=== PATIENT | female | born 1960 | race Caucasian/White ===

== ENCOUNTER 2017-04-06 22:53 | Emergency (ER) | payer OTHER ==
[2017-04-06 23:01] VITALS: BMI 23.3
[2017-04-06 23:07] VITALS: BP 111/68; PULSE 58; RESP 16; TEMP 97.9
--- NOTE | 2017-04-06 23:36 | ED PDOC ---
Arrival/HPI - General Chief Complaint: Back Pain Time Seen by Provider: 04/06/17 23:17 Historian: Patient - History of Present Illness Narrative History of Present Illness (Text): 04/06/17 23:31 57 year old female presents to the emergency department complaining of back pain radiating to right leg already diagnosed as sciatic pain that began one week ago. She states the pain occurs with any form of movement. 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 Patient has been taking tylenol, aspirin, muscle relaxers, but with no relief. She states that 600mg Advil has been effective but is concerned about its effects on her stomach. She has also taken tramadol but states it is too sedating and made her pass out so she stopped taking it. Patient has been seeing a physical therapist today and will be seeing one tomorrow. She also reports her last medication taken was Advil 100mg 4 hours ago. Patient denies any fever, chills, chest pain, shortness of breath, nausea, vomiting, diarrhea, urinary incontinence, urinary symptoms, back pain, neck pain, headache, dizziness, or any other complaints. PMD: Dr. Vidal Time/Duration: 1 week Symptom Onset: Gradual Symptom Course: Unchanged Activities at Onset: Light Context: Home Past Medical History - Provider Review Nursing Documentation Reviewed: Yes - Past History Past History: No Previous - Infectious Disease Hx of Infectious Diseases: None - Tetanus Immunization Tetanus Immunization: Unknown - Reproductive Menopause: Yes - Past Medical History Past Medical History: No Previous - Cardiac Other/Comment: palpitation - Psychiatric Hx Depression: No Hx Emotional Abuse: No Hx Physical Abuse: No Hx Substance Use: No - Past Surgical History Past Surgical History: No Previous - Surgical History Hx Section: Yes (x1) - Anesthesia Hx Anesthesia Reactions: No Hx Malignant Hyperthermia: No - Suicidal Assessment Feels Threatened In Home Enviroment: No Family/Social History - Physician Review Nursing Documentation Reviewed: Yes Family/Social History: No Known Family HX Smoking Status: Never Smoked Hx Alcohol Use: No Hx Substance Use: No Hx Substance Use Treatment: No Allergies/Home Meds Allergies/Adverse Reactions: Allergies Penicillins Allergy (Verified 04/06/17 23:05) RASH tramadol Adverse Reaction (Verified 04/06/17 23:04) DIZZINESS Home Medications: Home Meds Medication Instructions Recorded Confirmed Metoprolol Tartrate [Lopressor] 25 mg PO DAILY 04/06/17 04/06/17 Review of Systems - Physician Review All systems were reviewed & negative as marked: Yes - Review of Systems Constitutional: absent: Fevers, Other (Chills) Respiratory: absent: SOB Cardiovascular: absent: Chest Pain Gastrointestinal: absent: Nausea, Vomiting, Other (Urinary incontinence) Genitourinary Female: absent: Dysuria, Frequency, Hematuria Musculoskeletal: Other (Right leg pain). absent: Neck Pain Neurological: absent: Headache, Dizziness Physical Exam - Physical Exam Narrative Physical Exam (Text): Constitutional: No some distress secondary to pain. Head: Normocephalic. Atraumatic. Eyes: PERRL. ENT: Moist mucous membranes. Neck: Supple. Cardiovascular: Regular rate. Chest: No tenderness. Respiratory: Clear to auscultation bilaterally. GI: Soft. Nontender. Nondistended. Back: No CVA tenderness. No midline tenderness. Musculoskeletal: Right paralumbar tenderness. Positive straight leg raise. Skin: No rash. Neurologic: Alert, no focal deficit. Sensation to light touch intact in lower legs and saddle area. Vital Signs Reviewed: Yes Vital Signs Temp Pulse Resp BP Pulse Ox 04/07/17 00:05 16 99 04/06/17 22:53 97.9 F 58 L 16 111/68 97 Temperature: Afebrile Blood Pressure: Normal Pulse: Regular Respiratory Rate: Normal Appearance: Positive for: Well-Appearing, Non-Toxic, Comfortable Pain Distress: None Mental Status: Positive for: Alert and Oriented X 3 Medical Decision Making ED Course and Treatment: 04/06/17 23:31 Impression: 57 year old female presents complaining of right sciatic leg pain that began one week ago with MRI 4 days ago presenting for pain control. Plan: -- Pepcid -- Toradol -- Reassess and disposition Advised patient to continue pain medications, continue rehab, take pepcid/ protonix while on ibuprofen, f/u Dr. Vidal. - Medication Orders Current Medication Orders: Discontinued Medications Famotidine (Pepcid) 20 mg PO STAT STA Stop: 04/06/17 23:31 Last Admin: 04/06/17 23:54 Dose: 20 mg Ketorolac Tromethamine (Toradol) 30 mg IM STAT STA Stop: 04/06/17 23:31 Last Admin: 04/06/17 23:54 Dose: 30 mg - Scribe Statement The provider has reviewed the documentation as recorded by the Oliviaibe Provider Attestation: Joanie Weller All medical record entries made by the Oliviaibe were at my direction and personally dictated by me. I have reviewed the chart and agree that the record accurately reflects my personal performance of the history, physical exam, medical decision making, and the department course for this patient. I have also personally directed, reviewed, and agree with the discharge instructions and disposition. Disposition/Present on Arrival - Present on Arrival Any Indicators Present on Arrival: No History of DVT/PE: No History of Uncontrolled Diabetes: No Urinary Catheter: No History of Decub. Ulcer: No History Surgical Site Infection Following: None - Disposition Have Diagnosis and Disposition been Completed?: Yes Diagnosis: Sciatica Disposition: HOME/ ROUTINE Disposition Time: 23:32 Patient Plan: Discharge Condition: STABLE Discharge Instructions (ExitCare): Sciatica (ED) Prescriptions: Famotidine [Pepcid] 1 tab PO BID #28 tab Referrals: Sina Vidal MD [Staff Provider] - Follow up with primary Forms: [employer] (Fijian)
[2017-04-07 01:03] VITALS: O2SAT 99
== END 2017-04-07 00:05 | disposition home or self-care (01) ==
LOC: ED 22:53
DX: M54.30 Sciatica, unspecified side (principal)
CPT/HCPCS: 96372; 99282; J1885